=== PATIENT | female | born 1990 | race Two or more races ===

== ENCOUNTER 2020-06-09 11:48 | Emergency (ER) | payer MEDICAID ==
[~2020-06-09] VITALS: Ht 162.6 cm; Wt 77.3 kg
[2020-06-09 13:39] VITALS: BP 143/100
== END 2020-06-09 13:49 | disposition home or self-care (01) ==
LOC: EMS 11:59
DX: R44.0 Auditory hallucinations (principal); F17.210 Nicotine dependence, cigarettes, uncomplicated
CPT/HCPCS: 99284; Z7502